=== PATIENT | female | born 1985 | race Caucasian/White ===

== ENCOUNTER 2016-10-11 12:57 | Emergency (ER) | payer OTHER ==
[~2016-10-11] VITALS: Ht 160 cm; Wt 56.8 kg
[~2016-10-11 12:57] MED LIST: ANTIBIOTIC PO
[2016-10-11 13:40] LABS: PATH.CAST-FLAG NOT PRESENT; SPERM-FLAG NOT PRESENT; SRC-FLAG NOT PRESENT; XTAL-FLAG NOT PRESENT; YLC-FLAG NOT PRESENT
[2016-10-11] MEDS ORDERED: ONDANSETRON 2MG/ML, 2ML IVPush ONE (15:00)
[2016-10-11] MEDS ORDERED: SODIUM CHLORIDE FLUSH 10ML SYR IVF ONE (15:00)
[2016-10-11] MEDS ORDERED: ONDANSETRON 2MG/ML, 2ML ONE (15:10)
[2016-10-11] MEDS ORDERED: KETOROLAC 30 MG/1 ML ONE (15:10)
[2016-10-11 15:27] LABS: ASPARTATE AMINO TRANSFERASE 14 U/L (15-37); BLOOD UREA NITROGEN 11 mg/dL (7-18)
[2016-10-11] MEDS ORDERED: KETOROLAC 30 MG/1 ML IVPush ONE (15:30)
[2016-10-11 16:08] LABS: HCG UR OBC PASS
[2016-10-11 17:38] VITALS: BP 103/57
== END 2016-10-11 17:40 | disposition home or self-care (01) ==
LOC: ED 14:25
DX: G89.29 Other chronic pain (principal); R10.32 Left lower quadrant pain; R10.12 Left upper quadrant pain; R10.2 Pelvic and perineal pain; Z90.89 Acquired absence of other organs
CPT/HCPCS: 36415; 76830; 80053; 81001; 81025; 83690; 84703; 85025; 87086; 96374; 96375; 99285; J1885; J2405

== ENCOUNTER 2017-05-17 19:47 | Emergency (ER) | payer OTHER ==
[~2017-05-17] VITALS: Ht 167.6 cm; Wt 55.9 kg
[2017-05-17] MEDS ORDERED: SODIUM CHLORIDE 0.9% 1,000ML IVBOLUS ONE (20:30)
[2017-05-17] MEDS ORDERED: SODIUM CHLORIDE FLUSH 10ML SYR IVF ONE (20:30)
[2017-05-17 20:52] LABS: HEMATOCRIT 38.2 % (34.6-47.8); HEMOGLOBIN 13.1 g/dL (11.7-16.4); WHITE BLOOD COUNT 6.5 x10^3/uL (3.4-10)
[2017-05-17 21:02] LABS: ASPARTATE AMINO TRANSFERASE 13 U/L (15-37); BLOOD UREA NITROGEN 13 mg/dL (7-18)
[2017-05-17] MEDS ORDERED: KETOROLAC 30 MG/1 ML IVPush ONE (21:30)
[2017-05-17] MEDS ORDERED: KETOROLAC 30 MG/1 ML ONE (21:53)
[2017-05-17 23:20] VITALS: BP 101/74
== END 2017-05-17 23:22 | disposition home or self-care (01) ==
LOC: ED 23:00
DX: R10.11 Right upper quadrant pain (principal); N20.0 Calculus of kidney
CPT/HCPCS: 36415; 76700; 80053; 81001; 83690; 84703; 85025; 87086; 93005; 96361; 96374; 99285; J1885; J7030

== ENCOUNTER 2019-05-23 13:35 | Emergency (ER) | payer MEDICAID ==
[~2019-05-23] VITALS: Ht 167.6 cm; Wt 60.4 kg
--- NOTE | 2019-05-23 14:31 | NUR ---
PT MOVED TO ROOM
--- NOTE | 2019-05-23 14:38 | NUR ---
PATIENT AMBULATED TO THE BATHROOM WITH A STEADY GAIT.
[2019-05-23 15:36] LABS: BASOPHILS # (AUTO) 0.04 x10^3/uL (0-0.1); BASOPHILS % (AUTO) 1 % (0-1); EOSINOPHILS # (AUTO) 0.17 x10^3/uL (0-0.4); EOSINOPHILS % (AUTO) 4 % (1-7); LYMPHOCYTES # (AUTO) 2.11 x10^3/uL (1-3.4); LYMPHOCYTES % (AUTO) 42 % (22-44); MD NO; MEAN CORPUSCULAR HEMOGLOBIN 30.6 pg (27.0-34.8); MEAN CORPUSCULAR HGB CONC 33.7 g/dL (32.4-35.8); MEAN CORPUSCULAR VOLUME 90.8 fL (80-100); MONOCYTES # (AUTO) 0.41 x10^3/uL (0.2-0.8); MONOCYTES % (AUTO) 8 % (2-9); NEUTROPHILS # (AUTO) 2.32 x10^3/uL (1.8-6.8); NEUTROPHILS % (AUTO) 46 % (42-75); PLATELET COUNT 255 x10^3/uL (130-400); RED BLOOD COUNT 4.52 x10^6/uL (3.82-5.3); RED CELL DISTRIBUTION WIDTH 12.5 % (9.6-15.2)
[2019-05-23] MEDS ORDERED: NEOSPORIN OINT. PKT 1 PACKET ONE ×2 (15:38→15:44)
[2019-05-23 15:41] LABS: MICROSCOPIC AUTO
[2019-05-23 15:44] LABS: CULTURE INDICATED? NO
[2019-05-23 15:47] LABS: ALANINE AMINOTRANSFERASE 28 U/L (12-78); ALBUMIN 3.7 g/dL (3.4-5.0); ANION GAP 5 mmol/L (5-15); CALCIUM 8.8 mg/dL (8.5-10.1); CHLORIDE 111 mmol/L (98-107); CREATININE 0.91 mg/dL (0.55-1.02)
[2019-05-23 15:51] LABS: ALKALINE PHOSPHATASE 36 U/L (45-117); BILIRUBIN,TOTAL 0.4 mg/dL (0.2-1.0); TOTAL PROTEIN 6.9 g/dL (6.4-8.2)
--- NOTE | 2019-05-23 15:51 | NUR ---
PATIENT TRANSFERED TO [facility].
[2019-05-23 17:48] LABS: CLUE CELLS NONE SEEN (NONE SEEN); WET PREP WBCS FEW (FEW)
[2019-05-23 18:51] VITALS: BP 111/66
== END 2019-05-23 19:10 | disposition home or self-care (01) ==
LOC: ED 19:04
DX: S61.214A Laceration without foreign body of right ring finger without damage to nail, initial encounter (principal); N93.8 Other specified abnormal uterine and vaginal bleeding; X58.XXXA Exposure to other specified factors, initial encounter; Y93.89 Activity, other specified; Y92.009 Unspecified place in unspecified non-institutional (private) residence as the place of occurrence of the external cause; Y99.8 Other external cause status
CPT/HCPCS: 36415; 76830; 80053; 81001; 83690; 84703; 85025; 87210; 87491; 87591; 87808; 99284

== ENCOUNTER 2019-07-02 20:32 | Emergency (ER) | payer MEDICAID ==
[~2019-07-02] VITALS: Ht 167.6 cm; Wt 61.8 kg
[2019-07-02 20:36] VITALS: BP 106/66
== END 2019-07-02 23:39 | disposition home or self-care (01) ==
LOC: ED 22:59
DX: S62.646A Nondisplaced fracture of proximal phalanx of right little finger, initial encounter for closed fracture (principal); S62.644A Nondisplaced fracture of proximal phalanx of right ring finger, initial encounter for closed fracture; Y04.8XXA Assault by other bodily force, initial encounter; Y93.89 Activity, other specified; Y92.098 Other place in other non-institutional residence as the place of occurrence of the external cause; Y99.8 Other external cause status
CPT/HCPCS: 29105; 99283

== ENCOUNTER 2020-01-31 09:53 | Emergency (ER) | payer MEDICAID ==
[~2020-01-31] VITALS: Ht 157.5 cm; Wt 58.0 kg
[2020-01-31 10:06] VITALS: BP 98/48
--- NOTE | 2020-01-31 10:08 | NUR ---
PT BIB EMS FROM [facility] FOR CO LEFT SHOULDER PAIN FROM [facility] AND VAGINAL PAIN/DISCHARGE. CO CONSTIPATION FOR 1 DAY. DENIES COUGH, CP OR SOB. NO TRAUMA TO SHOULDER NOTICED. MD AT BEDSIDE
[2020-01-31] MEDS ORDERED: KETOROLAC 30 MG/1 ML IM ONE (10:30)
[2020-01-31] MEDS ORDERED: KETOROLAC 30 MG/1 ML ONE (10:38)
[2020-01-31 11:18] LABS: HCG UR SG 1.028 (1.003-1.030)
[2020-01-31 11:19] LABS: MICROSCOPIC INDICATED
[2020-01-31] MEDS ORDERED: LIDOCAINE-MPF 1%, 2ML ONE (11:26)
[2020-01-31] MEDS ORDERED: AZITHROMYCIN 500 MG TABLET ONE (11:26)
[2020-01-31] MEDS ORDERED: CEFTRIAXONE 250 MG ONE (11:26)
[2020-01-31] MEDS ORDERED: HYDROcodone/APAP 5/325 TABLET ONE (11:27)
[2020-01-31] MEDS ORDERED: AZITHROMYCIN 500 MG TABLET PO ONE (11:30)
[2020-01-31] MEDS ORDERED: CEFTRIAXONE 1,000 MG IM ONE (11:30)
[2020-01-31] MEDS ORDERED: HYDROcodone/APAP 5/325 TABLET PO ONE (11:30)
--- NOTE | 2020-01-31 11:37 | NUR ---
MEDICATED PER ORDERS. PELVIC COMPLETE
[2020-01-31 12:03] LABS: CLUE CELLS NONE SEEN (NONE SEEN); WET PREP WBCS MANY (FEW)
== END 2020-01-31 13:13 | disposition home or self-care (01) ==
LOC: ED 10:26
DX: N73.0 Acute parametritis and pelvic cellulitis (principal); M25.512 Pain in left shoulder; K59.00 Constipation, unspecified; R30.0 Dysuria; F17.200 Nicotine dependence, unspecified, uncomplicated; Z90.89 Acquired absence of other organs
CPT/HCPCS: 73030; 81001; 81025; 87086; 87147; 87210; 87491; 87591; 87808; 96372; 99284; J0696; J1885

== ENCOUNTER 2020-08-25 04:06 | Emergency (ER) | payer MEDICAID ==
[~2020-08-25] VITALS: Ht 167.6 cm; Wt 60.0 kg
[2020-08-25] MEDS ORDERED: LORazepam 1MG TABLET PO ONE (04:30)
--- NOTE | 2020-08-25 04:30 | NUR ---
PT BIB [facility] TO ROOM, TEARY AND IN A DEPRESSED MOOD. PT PROVIDED WARM BLANKETS AND TRIAGED IN ROOM. PA TO BEDSIDE TO EVAL PT.
[2020-08-25] MEDS ORDERED: LORazepam 1MG TABLET ONE (04:36)
[2020-08-25 04:42] LABS: BASOPHILS % (AUTO) 1 % (0-1); EOSINOPHILS % (AUTO) 5 % (1-7); LYMPHOCYTES % (AUTO) 39 % (22-44); MEAN CORPUSCULAR HEMOGLOBIN 30.4 pg (27.0-34.8); MEAN CORPUSCULAR HGB CONC 33.9 g/dL (32.4-35.8); MEAN PLATELET VOLUME 9.7 fL (7.4-10.4); MONOCYTES % (AUTO) 12 % (2-9); NEUTROPHILS % (AUTO) 44 % (42-75); PLATELET COUNT 231 x10^3/uL (130-400); RED BLOOD COUNT 4.52 x10^6/uL (3.82-5.3); RED CELL DISTRIBUTION WIDTH 12.8 % (9.6-15.2)
--- NOTE | 2020-08-25 04:42 | NUR ---
[employer] ATTENDANT TO BEDSIDE AND [facility] AND PT MEDICATED PER EMAR TO HELP WITH HER ANXIETY AT THIS TIME. PT PROVIDED URINE SAMPLE, AND COLLECTED AND SENT TO LAB.
[2020-08-25 04:44] LABS: MD NO
[2020-08-25 04:54] LABS: ALANINE AMINOTRANSFERASE 39 U/L (12-78); ALBUMIN 3.7 g/dL (3.4-5.0); CALCIUM 8.8 mg/dL (8.5-10.1); CREATININE 0.88 mg/dL (0.55-1.02); SALICYLATE LEVEL 1.8 mg/dL (2.8-20.0)
[2020-08-25 04:58] LABS: ALKALINE PHOSPHATASE 47 U/L (45-117); BILIRUBIN,TOTAL 0.3 mg/dL (0.2-1.0); TOTAL PROTEIN 6.8 g/dL (6.4-8.2)
[2020-08-25 05:04] LABS: ANION GAP 4 mmol/L (5-15); CHLORIDE 110 mmol/L (98-107)
[2020-08-25 05:05] LABS: AMPHETAMINE SCREEN, URINE Positive (Negative); BARBITURATE SCREEN, URINE Negative (Negative); BENZODIAZEPINE SCREEN, URINE Negative (Negative); CANNABINOID SCREEN, URINE Positive (Negative); COCAINE SCREEN, URINE Negative (Negative); METHADONE SCREEN, URINE Negative (Negative); OPIATE SCREEN, URINE Negative (Negative)
--- NOTE | 2020-08-25 05:17 | NUR ---
TELEPSYCH CONSULT ORDERED. PT SLEEPING/RESTING IN BED, ON O2 SAT PROBE.
--- NOTE | 2020-08-25 06:22 | NUR ---
PT SLEEPING IN ROOM, WAITING TO SPEAK WITH TELEPSYCH. NO ACUTE DISTRESS.
--- NOTE | 2020-08-25 06:45 | NUR ---
report and care to day shift RN.
--- NOTE | 2020-08-25 08:31 | NUR ---
PT AWAKE SITTING UP EATING BREAKFAST.
--- NOTE | 2020-08-25 09:30 | NUR ---
PT ASLEEP. NADN.
--- NOTE | 2020-08-25 10:41 | NUR ---
toney eugene at bedside for evaluation
[2020-08-25 11:21] VITALS: BP 103/46
--- NOTE | 2020-08-25 11:32 | NUR ---
PT UP FOR DISCHARGED. ASKED TO BE DRESSED X2 NOW. PT LAYING IN BED ON PHONE IN GOWN. THIS RN REQUESTED PT GET DRESSED AGAIN. PT AGIATED STATED "I'M GETTING MY RIDE. GET THE HELL OUT OF THE ROOM FOR ME TO GET DRESSED THEN"
--- NOTE | 2020-08-25 11:40 | NUR ---
PT REFUSING TO GET DRESSED, SECURITY CALLED AFTER MULIPLE REQUESTS. PT AGIATED AND STATING "YOU CAN'T KICK PEOPLE OUT LIKE THIS AND SCREAM AT ME" THIS RN EDUCATED PT ON D/C. PT ABLE TO DRESS SELF AND AMBULATE WITH STEADY GAIT TO D/C WITH SECURITY WITH ALL BELONGINGS.
== END 2020-08-25 11:48 | disposition home or self-care (01) ==
LOC: ED 09:07
DX: F41.1 Generalized anxiety disorder (principal); F15.10 Other stimulant abuse, uncomplicated
CPT/HCPCS: 36415; 80053; 80143; 80179; 80307; 80320; 84703; 85025; 99283; G0480